=== PATIENT | female | born 1975 | race Caucasian/White ===

== ENCOUNTER → 2024-02-15 07:51 | Outpatient (REF) | payer OTHER, SELFPAY ==
[2024-02-15 08:42] LABS: % Basophils 1.2 % (0-2); % Eosinophils 2.1 % (0-6); % Immature Granulocytes 0.3 % (0-0.5); % Monocytes 5.8 % (1.7-9.3); % Neutrophils 63.6 % (42.2-75.2); Absolute Basophils 0.1 10^3/uL (0-0.2); Absolute Eosinophils 0.1 10^3/uL (0-0.7); Absolute Lymphocytes 1.8 10^3/uL (1.2-3.4); Absolute Monocytes 0.4 10^3/uL (0.1-0.6); Absolute Neutrophils 4.3 10^3/uL (1.4-6.5); Hematocrit 39.5 % (37.0-47.0); Hemoglobin 13.3 g/dL (12.0-16.0); Mean Corp Hgb Conc. 33.7 g/dL (33.0-37.0); Mean Corpuscular Hgb 28.2 pg (27.0-31.0); Mean Corpuscular Volume 83.9 fL (81.0-99.0); Mean Platelet Volume 10.8 fL (7.4-10.4); Nucleated Red Blood Cells % 0 %; Platelet Count 242 10^3/uL (130-400); Red Blood Cell Count 4.71 10^6/uL (4.20-5.40); Red Cell Dist. Width 12.1 % (11.5-14.5); White Blood Cell Count 6.8 10^3/uL (4.8-10.8)
[2024-02-15 08:56] LABS: Erythrocyte Sed Rate 15 mm/hour (0-20)
[2024-02-15 09:14] LABS: ALT (SGPT) 43 U/L (0-35); AST (SGOT) 35 U/L (14-36); Albumin 4.4 g/dl (3.5-5.0); Alkaline Phosphatase 109 U/L (38-126); Blood Urea Nitrogen 20 mg/dl (7-17); Calcium 10.3 mg/dl (8.4-10.2); Carbon Dioxide 31 mmol/L (22-30); Chloride 99 mmol/L (98-107); Glucose 103 mg/dl (70-99); HDL Cholesterol 51 mg/dl; LDL Cholesterol, Calculated 88 mg/dl; Potassium 3.8 mmol/L (3.5-5.1); Sodium 138 mmol/L (135-145); Total Bilirubin 0.5 mg/dl (0.2-1.3); Total Cholesterol 179 mg/dl (50-199); Triglyceride 202 mg/dl (10-149); Very Low Density Lipoprotein 40 mg/dl (0-30); eGFR > 60.00
[2024-02-15 09:32] LABS: Vitamin D, 25-OH*** 20.3 ng/mL (30-80)
[2024-02-16 22:29] LABS: CCP Antibody IgG/IgA 5 Units (0-19)
== END ==
LOC: RAD 07:51
PROVIDERS: ATTENDING PHYSICIAN Specialist; FAMILY PHYSICIAN Family Medicine; REFERRING PHYSICIAN Internal Medicine Rheumatology
DX: R78.89 Finding of other specified substances, not normally found in blood (principal); M13.0 Polyarthritis, unspecified; M17.0 Bilateral primary osteoarthritis of knee; E78.2 Mixed hyperlipidemia; K75.81 Nonalcoholic steatohepatitis (NASH); E55.9 Vitamin D deficiency, unspecified
CPT/HCPCS: 36415; 76700; 80053; 80061; 82306; 85025; 85652; 86140; 86200; 86430

== ENCOUNTER → 2024-07-14 19:25 | Outpatient (REF) | payer OTHER, SELFPAY | LOC: MRI 19:25 | PROVIDERS: ATTENDING PHYSICIAN Specialist; FAMILY PHYSICIAN Family Medicine | DX: M17.0 Bilateral primary osteoarthritis of knee (principal) | CPT/HCPCS: 72148; 73721 ==

== ENCOUNTER 2024-07-29 13:25 | Emergency (ER) | payer OTHER, SELFPAY ==
--- NOTE | 2024-07-29 13:44 | ED.GENMED ---
ED Provider Triage
<Maile Matthews PA-C - Last Filed: 07/29/24 13:50>
-
Patient seen by provider in Triage?: Seen in Triage
Attestation: A medical screening examination has been initiated by a qualified medical provider. Based on the assessment performed at this time, it has been determined that an emergent medical condition may exist and the patient has been informed
that further medical evaluation and possible additional diagnostic testing may be needed.
HPI: 49yoF here with trouble swallowing. Started around 7:30am this morning. [place] like something was crushing her trachea. No associated tongue swelling. Hx of seasonal allergies.
GENERAL: Alert , in no apparent distress
EYE: No visual abnormalities.
NECK: Trachea midline
ENT: No visible abnormalities.
LUNGS: No acute respiratory distress
NEUROLOGICAL: Alert and oriented
SKIN: Skin intact. No visible changes.
MUSCULOSKELETAL: Moving extremities normally
PSYCH: Normal and appropriate interaction.
This is a medical evaluation conducted in person to initiate diagnostic evaluation and provide initial therapeutics. Please see further documentation by the treating clinician.
No oropharyngeal swelling and airway is patent. Phonation is normal. No stridor.
History of Present Illness
<Maile Matthews PA-C - Last Filed: 07/29/24 13:50>
General
Chief Complaint: Throat Problem
Time Seen by Provider: 07/29/24 14:24
<Tabitha Hernández OFFICE BOOKKEEPER - Last Filed: 07/29/24 22:07>
General
Source: patient
Exam Limitations: none
Nursing documentation reviewed up to this point in time: agreed with
History of Present Illness
History of Present Illness:
49-year-old female with history of HLD, GERD, anxiety/depression/panic disorder presents stating since 730 this a.m. she has had difficulty swallowing. States 'it doesn't feel like there's anything in my throat, it's just that the whole throat
(placing hands over front of throat and lower jaw) feels tight.' She states 'it may be my anxiety.' She took 0.5 mg of Ativan at 8:15 with no relief. She denies any undue stress but at bedside states 'she is a stress monster.' Has history
of chronic stress. She denies pain in the throat or pain with swallowing, denies fever/chills. She has had an increase in her seasonal allergies in the past couple of days and is taking Flonase, Xyzal and in the past 2 days has been taking
Sudafed. She states she went to work and took her Protonix pill, drank some water to get the pill down and she had to spit it out into the sink due to difficulty swallowing.
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
Past History
<Maile Matthews PA-C - Last Filed: 07/29/24 13:50>
Past History
ED Past Medical History: Hypercholesterolemia, Psychiatric (Depression, anxiety, suicidal ideation) and Other (Endometriosis in the past, ovarian cysts, osteoarthritis, pericarditis)
ED Past Surgical History: Gynecological and Orthopedic
Social History
Tobacco: Non-smoker
Alcohol: Occasional
Drug: None
Personal:
Living: with family
Employment: Employed
Family History
Family History: Other
Review of Systems
<Tabitha Hernández NP - Last Filed: 07/29/24 22:07>
Review of Systems
Allergies reviewed?: Yes
All Other Systems: ROS reviewed and negative except as documented in HPI and ROS
Constitutional: Denies fever or fatigue
EENT: Denies sore throat (difficulty swallowing, throat feels 'tight')
Respiratory: Reports no symptoms
Cardiac: Reports no symptoms
ABD/GI: Reports no symptoms
Musculoskeletal: Reports no symptoms
Skin: Reports no symptoms
Neurological: Reports no symptoms
Phy Exam
<Tabitha Hernández OFFICE BOOKKEEPER - Last Filed: 07/29/24 22:07>
Physical Exam
Physical Exam:
GENERAL: No acute distress. A&Ox3.
CONSTITUTIONAL: Afebrile.
EYES: clear, conjunctivae normal
Neck: Supple
ENMT: moist mucus membranes, Pharynx nl,TMs normal. Speaking and swallowing saliva well.
RESPIRATORY: Regular respirations, nonlabored, lungs clear.
CARDIOVASCULAR: Regular rate and rhythm, no murmurs, no rubs.
GI: Soft, nontender
MUSCULOSKELETAL: Moves with ease. Well perfused.
SKIN: Warm, dry, pink
PSYCH: Normal mood and affect. Well kept, interactive and appropriate
NEUROLOGIC: Awake, alert and oriented. No focal neurological deficits
Course
<Maile Matthews PA-C - Last Filed: 07/29/24 13:50>
Orders/Labs/Results
Orders:
Orders
07/29/24 14:34
CR Soft Tissue Neck Urgent
Comment:
Reason For Exam: feeling like throat is swollen, diff swallowing
07/29/24 16:09
Mag Hydrox/Al Hydrox/Simeth [Maalox] 30 ml Phenobarb/Hyoscy/Atropine/Scop [] 10 ml Viscous Lidocaine 2% [Xylocaine Viscous Cup] 10 ml PO NOW
07/29/24 16:21
Mag Hydrox/Al Hydrox/Simeth [Maalox] 30 ml .ROUTE .STK-MED ONE
Phenobarb/Hyoscy/Atropine/Scop [] 10 ml .ROUTE .STK-MED ONE
Viscous Lidocaine 2% [Xylocaine Viscous Cup] 15 ml .ROUTE .STK-MED ONE
Vital Signs
Initial and Last Documented VS:
Initial Vital Signs
Temp Pulse Resp BP Pulse Ox
98.7 F 84 16 121/89 99
07/29/24 13:49 07/29/24 13:49 07/29/24 13:49 07/29/24 13:49 07/29/24 13:49
Last Documented Vital Signs
Temp Pulse Resp BP Pulse Ox
98.7 F 84 16 121/89 99
07/29/24 13:49 07/29/24 13:49 07/29/24 13:49 07/29/24 13:49 07/29/24 14:44
<Tabitha Hernández OFFICE BOOKKEEPER - Last Filed: 07/29/24 22:07>
Orders/Labs/Results
Orders:
Orders
07/29/24 14:34
CR Soft Tissue Neck Urgent
Comment:
Reason For Exam: feeling like throat is swollen, diff swallowing
07/29/24 16:09
Mag Hydrox/Al Hydrox/Simeth [Maalox] 30 ml Phenobarb/Hyoscy/Atropine/Scop [] 10 ml Viscous Lidocaine 2% [Xylocaine Viscous Cup] 10 ml PO NOW
07/29/24 16:21
Mag Hydrox/Al Hydrox/Simeth [Maalox] 30 ml .ROUTE .STK-MED ONE
Phenobarb/Hyoscy/Atropine/Scop [] 10 ml .ROUTE .STK-MED ONE
Viscous Lidocaine 2% [Xylocaine Viscous Cup] 15 ml .ROUTE .STK-MED ONE
Vital Signs
Initial and Last Documented VS:
Initial Vital Signs
Temp Pulse Resp BP Pulse Ox
98.7 F 84 16 121/89 99
07/29/24 13:49 07/29/24 13:49 07/29/24 13:49 07/29/24 13:49 07/29/24 13:49
Last Documented Vital Signs
Temp Pulse Resp BP Pulse Ox
98.7 F 84 16 121/89 99
07/29/24 13:49 07/29/24 13:49 07/29/24 13:49 07/29/24 13:49 07/29/24 14:44
<Tabitha Hernández OFFICE BOOKKEEPER - Last Filed: 07/29/24 22:07>
MDM/Problems Addressed
Differential Diagnosis Includes:
Seasonal allergies, throat irritation from farm dust, neck mass/swelling, anxiety
MDM/Problems Addressed:
49-year-old female with history of HLD, GERD, anxiety/depression/panic disorder presents stating since 730 this a.m. she has had difficulty swallowing. States 'it doesn't feel like there's anything in my throat, it's just that the whole throat
(placing hands over front of throat and lower jaw) feels tight. She states 'it may be my anxiety.' She took 0.5 mg of Ativan at 8:15 with no relief. She denies any undue stress but at bedside states 'she is a stress monster.' Has history
of chronic stress. She denies pain in the throat or pain with swallowing, denies fever/chills. She has had an increase in her seasonal allergies in the past couple of days and is taking Flonase, Xyzal and in the past 2 days has been taking
Sudafed. She states she went to work and took her Protonix pill, drank some water to get the pill down and she had to spit it out into the sink due to difficulty swallowing.
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
Patient is in absolutely no distress, she is conversing with no notable difficulty speaking or swallowing.
She states she can take tiny sips and it goes down but if she takes a regular drink it 'just comes right back up.'
4:10 p.m.
ST neck xray normal
Pt asking if there's anything to help the feeling in her throat
GI cocktail given, pt has appt with GI Dr. Logan and is in discussion about Upper endoscopy
Referred to ENT for swallowing difficulty
Pt has appt with her psychiatrist tomorrow
She is comfortable going home.
<Tabitha V. Day, OFFICE BOOKKEEPER - Last Filed: 07/29/24 22:07>
*Critical Care Note
Total Time (30-74mins, 75-104mins- exclusive of procedures): Not Applicable
ED Attending Note
<Maile Matthews PA-C - Last Filed: 07/29/24 13:50>
-
Portions of this chart may have been created with voice recognition software.� Occasional wrong word or��sound alike� substitutions may have occurred due to the inherent limitations of voice recognition software.
Discharge Plan
Departure
Patient Disposition: Home (Routine Discharge)
Date of Disposition: 07/29/24
Time of Disposition: 16:25
Patient with high blood pressure during this ER visit?: No
Condition: Good
Discharge Problem:
Throat tightness
Instructions: Dysphagia (DC)
Prescriptions:
No Action
atorvastatin 10 MG tablet
10 mg PO QPM
pantoprazole 40 MG tablet,delayed release (DR/EC)
40 mg PO DAILY Qty: 0 0RF
levocetirizine [Xyzal] 5 MG tablet
5 mg PO DAILY
Dyazide:
1 tab PO DAILY
Lamictal
100 mg PO BID
Oxycodone
5 mg PO TID
Singulair
10 mg PO DAILY
Ambien:
10 mg PO PRN PRN (Reason: sleep)
Alprazolam
1 tab PO PRN PRN (Reason: anxiety)
albuterol sulfate [Proventil HFA] 90 MCG/PUFF HFA aerosol inhaler
1 puff inhalation Q4HPRN PRN (Reason: shortness of breath) Qty: 1 0RF
prednisone 50 MG tablet
50 mg PO DAILY Qty: 5 0RF
azithromycin 250 MG tablet
250 mg PO DAILY 4 Days Qty: 4 0RF
amoxicillin-pot clavulanate 875-125 mg tablet
1 tab PO BID 3 Days Qty: 6 0RF
amoxicillin-pot clavulanate 875-125 mg tablet
1 tab PO BID Qty: 14 0RF
Referrals:
Tom Bernal MD [Active] - As needed
Rafael Good MD [Family Provider] -
Activity Restrictions/Additional Instructions:
As we discussed, the x-ray of your neck shows no obstruction or mass. Follow-up with Dr. Logan as you were discussing with him the possible need for an endoscopy.
I have provided you the name of an ENT doctor you may follow-up with if your symptoms persist.
Return here immediately for inability to swallow your secretions, trouble breathing or feeling worse in any way
Interventions
Interventions:
*Risk Screen - Suicide Last Done: 07/29/24 13:49
*General Assessment Last Done: 07/29/24 13:49
*Neglect/Abuse Screening Last Done: 07/29/24 13:49
*Nursing Disposition Last Done: 07/29/24 16:41
ED-EENT Assessment Last Done: 07/29/24 14:44
ED- Pulmonary Assessment Last Done: 07/29/24 14:44
Discharge Date and Time
Discharge Date/Time: 07/29/24 16:41
Print Language: NIUEAN
[2024-07-29 13:49] VITALS: BP 121/89
[2024-07-29] MEDS: MAALOX 50 PO (16:22)
== END 2024-07-29 16:41 | disposition home or self-care (01) ==
LOC: EMR 13:25
PROVIDERS: EMERGENCY PHYSICIAN Emergency Medicine; FAMILY PHYSICIAN Family Medicine
DX: R13.10 Dysphagia, unspecified (principal); E78.00 Pure hypercholesterolemia, unspecified; K21.9 Gastro-esophageal reflux disease without esophagitis; F41.8 Other specified anxiety disorders; F41.0 Panic disorder [episodic paroxysmal anxiety]; M19.90 Unspecified osteoarthritis, unspecified site
CPT/HCPCS: 99283; 70360

== ENCOUNTER → 2024-08-07 10:08 | Outpatient (REF) | payer OTHER, SELFPAY ==
[2024-08-07 10:51] LABS: ALT (SGPT) 339 U/L (0-35); AST (SGOT) 165 U/L (14-36); Albumin 4.3 g/dl (3.5-5.0); Alkaline Phosphatase 245 U/L (38-126); Blood Urea Nitrogen 21 mg/dl (7-17); Calcium 9.8 mg/dl (8.4-10.2); Carbon Dioxide 33 mmol/L (22-30); Chloride 97 mmol/L (98-107); Glucose 109 mg/dl (70-99); HDL Cholesterol 40 mg/dl; LDL Cholesterol, Calculated 133 mg/dl; Potassium 4.4 mmol/L (3.5-5.1); Sodium 142 mmol/L (135-145); Total Bilirubin 0.6 mg/dl (0.2-1.3); Total Cholesterol 213 mg/dl (50-199); Total Protein 7.3 g/dl (6.3-8.2); Triglyceride 201 mg/dl (10-149); Very Low Density Lipoprotein 40 mg/dl (0-30); eGFR > 60.00
[2024-08-07 10:52] LABS: Glycohemoglobin (HgbA1c) 5.8 % (4.0-5.6)
[2024-08-07 11:07] LABS: Vitamin D, 25-OH*** 20.9 ng/mL (30-80)
== END ==
LOC: REG 10:08
PROVIDERS: ATTENDING PHYSICIAN Family Medicine
DX: E78.2 Mixed hyperlipidemia (principal); E66.01 Morbid (severe) obesity due to excess calories; E55.9 Vitamin D deficiency, unspecified; R73.02 Impaired glucose tolerance (oral)
CPT/HCPCS: 36415; 80053; 80061; 82306; 83036; 84443

== ENCOUNTER → 2024-08-13 11:24 | Outpatient (REF) | payer OTHER, SELFPAY ==
[2024-08-13 12:34] LABS: ALT (SGPT) 388 U/L (0-35); AST (SGOT) 237 U/L (14-36); Albumin 4.6 g/dl (3.5-5.0); Alkaline Phosphatase 331 U/L (38-126); Direct Bilirubin 0.3 mg/dl (0.0-0.4); Total Bilirubin 0.6 mg/dl (0.2-1.3); Total Protein 7.7 g/dl (6.3-8.2)
[2024-08-16 01:58] LABS: ANA, IgG Reflex to HEp-2 None Detected (None Detected)
[2024-08-16 02:10] LABS: F-Actin Antibody IgG 9 Units (0-19); Mitochondrial M2 Ab, IgG 63.7 Units (0.0-24.9)
== END ==
LOC: REG 11:24
PROVIDERS: ATTENDING PHYSICIAN Specialist; FAMILY PHYSICIAN Family Medicine
DX: K75.81 Nonalcoholic steatohepatitis (NASH) (principal); M25.50 Pain in unspecified joint
CPT/HCPCS: 36415; 80076; 86015; 86038; 86381

== ENCOUNTER 2024-08-15 11:07 | Emergency (ER) | payer OTHER, SELFPAY ==
[2024-08-15 11:08] VITALS: BP 136/81
[2024-08-15 11:41] VITALS: BMI 32.6
[2024-08-15 11:45] VITALS: BP 123/69
[2024-08-15 12:18] LABS: % Basophils 0.8 % (0-2); % Eosinophils 1.5 % (0-6); % Immature Granulocytes 0.7 % (0-0.5); % Monocytes 3.9 % (1.7-9.3); % Neutrophils 82.1 % (42.2-75.2); Absolute Basophils 0.1 10^3/uL (0-0.2); Absolute Eosinophils 0.1 10^3/uL (0-0.7); Absolute Immature Granulocytes 0.1 10^3/uL (0-0.05); Absolute Lymphocytes 0.9 10^3/uL (1.2-3.4); Absolute Monocytes 0.3 10^3/uL (0.1-0.6); Hemoglobin 13.7 g/dL (12.0-16.0); Mean Corp Hgb Conc. 34.3 g/dL (33.0-37.0); Mean Corpuscular Hgb 29.1 pg (27.0-31.0); Mean Corpuscular Volume 85.1 fL (81.0-99.0); Mean Platelet Volume 10.6 fL (7.4-10.4); Nucleated Red Blood Cells % 0 %; Platelet Count 272 10^3/uL (130-400); Red Cell Dist. Width 12.9 % (11.5-14.5); White Blood Cell Count 8.5 10^3/uL (4.8-10.8)
[2024-08-15 12:25] LABS: ALT (SGPT) 283 U/L (0-35); AST (SGOT) 111 U/L (14-36); Albumin 4.6 g/dl (3.5-5.0); Alkaline Phosphatase 307 U/L (38-126); Blood Urea Nitrogen 15 mg/dl (7-17); Calcium 10.1 mg/dl (8.4-10.2); Carbon Dioxide 32 mmol/L (22-30); Chloride 94 mmol/L (98-107); Estimated Creatinine Clearance 90 ml/min; Glucose 110 mg/dl (70-99); Lipase 81 U/L (23-300); Potassium 3.7 mmol/L (3.5-5.1); Sodium 138 mmol/L (135-145); Total Bilirubin 0.7 mg/dl (0.2-1.3); Total Protein 7.9 g/dl (6.3-8.2); eGFR > 60.00
--- NOTE | 2024-08-15 13:37 | ED.GENMED ---
History of Present Illness
General
Chief Complaint: Abdominal Pain
Source: patient and spouse
Time Seen by Provider: 08/15/24 11:27
History of Present Illness
History of Present Illness:
49-year-old female presents for evaluation after she developed pain right upper quadrant of her abdomen. Pain started last night. The patient does admit she has been following slightly abnormal LFTs and is by gastroenterology. She called her GI
doctor and advised to come to the hospital later for pain. Patient states her last labs showed LFTs in the 200-300s. No fevers. No vomiting. No nausea.
Past History
Past History
ED Past Medical History: Hypercholesterolemia, Psychiatric (Depression, anxiety, suicidal ideation) and Other (Endometriosis in the past, ovarian cysts, osteoarthritis, pericarditis)
ED Past Surgical History: Gynecological and Orthopedic
Social History
Tobacco: Non-smoker
Alcohol: Occasional
Drug: None
Personal:
Living: with family
Employment: Employed
Family History
Family History: Other
Phy Exam
Physical Exam
Physical Exam:
CONSTITUTIONAL Patient alert and oriented to person, place and time. Well-appearing. Vital signs reviewed.
HEAD atraumatic, normocephalic.
EYES eyelids normal to inspection, Extraocular muscles intact, Conjunctiva normal, Sclera normal.
NECK normal range of motion, Trachea midline, no jugular venous distention.
RESPIRATORY CHEST No respiratory distress noted, Chest expansion equal, Bilateral breath sounds clear.
CARDIOVASCULAR regular rate and rhythm, Heart sounds normal.
ABDOMEN mild right upper quadrant tenderness, Bowel sounds normal. No distention.
BACK normal inspection, no obvious deformities
UPPER EXTREMITY range of motion normal, Motor strength normal, no cyanosis, no edema.
LOWER EXTREMITY range of motion normal, Motor strength normal, no cyanosis, no edema.
NEURO Speech normal, No focal motor deficits, Uriel coma scale 15, Memory normal, Cranial Nerves intact to screening exam.
SKIN skin warm, dry, and normal in color.
Course
Orders/Labs/Results
Orders:
Orders
08/15/24 11:38
US Abdomen Complete/Upper Urgent
Comment:
Reason For Exam: RUQ pain, abn LFTs
08/15/24 11:57
Complete Blood Count/With Diff Urgent
Comprehensive Metabolic Panel Urgent
Lipase Urgent
Abnormal Lab Results
08/15/24
11:57
MPV 10.6 H fL
(7.4-10.4)
Abs Immat Gran (auto) 0.1 H 10^3/uL
(0-0.05)
Absolute Neuts (auto) 7.0 H 10^3/uL
(1.4-6.5)
Absolute Lymphs (auto) 0.9 L 10^3/uL
(1.2-3.4)
Immature Gran % 0.7 H %
(0-0.5)
Neutrophils % 82.1 H %
(42.2-75.2)
Lymphocytes % 11.0 L %
(20.5-51.1)
Chloride 94 L mmol/L
(98-107)
Carbon Dioxide 32 H mmol/L
(22-30)
Glucose 110 H mg/dl
(70-99)
AST 111 H U/L
(14-36)
ALT 283 H U/L
(0-35)
Alkaline Phosphatase 307 H U/L
(38-126)
08/15/24 11:57
08/15/24 11:57
Vital Signs
Initial and Last Documented VS:
Initial Vital Signs
Temp Pulse Resp BP Pulse Ox
98.0 F 90 16 136/81 99
08/15/24 11:08 08/15/24 11:08 08/15/24 11:08 08/15/24 11:08 08/15/24 11:08
Last Documented Vital Signs
Temp Pulse Resp BP Pulse Ox
98.0 F 90 16 123/69 96
08/15/24 11:08 08/15/24 11:08 08/15/24 11:08 08/15/24 11:45 08/15/24 11:45
MDM/Problems Addressed
MDM/Problems Addressed:
Abnormal LFTs, fatty liver, gallbladder polyp
*Radiology
Radiology exam reviewed: radiology read reviewed
*Pulse Oximetry
Patient hypoxic: no
*Critical Care Note
Total Time (30-74mins, 75-104mins- exclusive of procedures): Not Applicable
Data Reviewed
Review of Other/Old Records Reveals: Labs (Previous LFTs reviewed)
Source: patient and spouse
Further Testing Considered But Not Given:
Consider CT but ultrasound was reasonable
Patient Management
Discussion with other providers: Guest Services Agent (Gastroenterology)
Escalation/DeEscalation of care consider admission/obs:
49-year-old female presents for right upper quadrant pain. Noted to have recent elevated LFTs. Today's LFTs are improved from recent. Ultrasound noted. Ultrasound ultrasound the gastroenterology who recommends outpatient follow-up. Patient
appears well and is stable
ED Attending Note
-
Portions of this chart may have been created with voice recognition software.� Occasional wrong word or��sound alike� substitutions may have occurred due to the inherent limitations of voice recognition software.
Discharge Plan
Departure
Patient Disposition: Home (Routine Discharge)
Date of Disposition: 08/15/24
Time of Disposition: 13:42
Patient with high blood pressure during this ER visit?: No
Discharge Problem:
Abdominal pain
Instructions: Abdominal Pain
Prescriptions:
No Action
atorvastatin 10 MG tablet
10 mg PO QPM
pantoprazole 40 MG tablet,delayed release (DR/EC)
40 mg PO DAILY Qty: 0 0RF
levocetirizine [Xyzal] 5 MG tablet
5 mg PO DAILY
Dyazide:
1 tab PO DAILY
Lamictal
100 mg PO BID
Oxycodone
5 mg PO TID
Singulair
10 mg PO DAILY
Ambien:
10 mg PO PRN PRN (Reason: sleep)
Alprazolam
1 tab PO PRN PRN (Reason: anxiety)
albuterol sulfate [Proventil HFA] 90 MCG/PUFF HFA aerosol inhaler
1 puff inhalation Q4HPRN PRN (Reason: shortness of breath) Qty: 1 0RF
prednisone 50 MG tablet
50 mg PO DAILY Qty: 5 0RF
azithromycin 250 MG tablet
250 mg PO DAILY 4 Days Qty: 4 0RF
amoxicillin-pot clavulanate 875-125 mg tablet
1 tab PO BID 3 Days Qty: 6 0RF
amoxicillin-pot clavulanate 875-125 mg tablet
1 tab PO BID Qty: 14 0RF
Referrals:
Rafael Good MD [Family Provider] -
Activity Restrictions/Additional Instructions:
Please follow-up with Dr. Logan. Return immediately for worsening symptoms, tractable vomiting, shortness of breath, palpitations, weakness or any other concerns
Interventions
Interventions:
*Risk Screen - Suicide Last Done: 08/15/24 11:41
*General Assessment Last Done: 08/15/24 11:41
*Neglect/Abuse Screening Last Done: 08/15/24 11:41
ED- Fall Risk Assessment Last Done: 08/15/24 11:41
*ED COVID-19 Vaccine History Last Done: 08/15/24 11:41
TZ-[id number]-[id number] Assessment Last Done: 08/15/24 11:41
Discharge Date and Time
Print Language: MALTESE
[2024-08-15 13:58] VITALS: BP 116/48
== END 2024-08-15 14:06 | disposition home or self-care (01) ==
LOC: EMR 11:07
PROVIDERS: EMERGENCY PHYSICIAN Emergency Medicine; FAMILY PHYSICIAN Family Medicine
DX: R10.11 Right upper quadrant pain (principal)
CPT/HCPCS: 99284; 76700; 80053; 83690; 85025

== ENCOUNTER → 2024-08-18 13:11 | Outpatient (REF) | payer OTHER, SELFPAY ==
[2024-08-18 15:26] LABS: ALT (SGPT) 136 U/L (0-35); AST (SGOT) 52 U/L (14-36); Albumin 4.6 g/dl (3.5-5.0); Alkaline Phosphatase 255 U/L (38-126); Direct Bilirubin 0.2 mg/dl (0.0-0.4); Lipase 89 U/L (23-300); Total Bilirubin 0.4 mg/dl (0.2-1.3); Total Protein 7.9 g/dl (6.3-8.2)
[2024-08-20 22:53] LABS: EBV-EA (D) Ab IgG 53.3 U/mL (0.0-10.9)
[2024-08-20 22:56] LABS: CMV IgM Antibody 10.9 AU/mL (<=29.9)
[2024-08-21 01:14] LABS: LKM-1 Ab (IgG) 1.6 U (0.0-24.9)
== END ==
LOC: REG 13:11
PROVIDERS: ATTENDING PHYSICIAN Specialist; FAMILY PHYSICIAN Family Medicine
DX: R79.89 Other specified abnormal findings of blood chemistry (principal)
CPT/HCPCS: 36415; 80076; 83516; 83690; 84155; 84165; 86376; 86645; 86663; 86664; 86665

== ENCOUNTER → 2024-08-27 12:55 | Outpatient (REF) | payer OTHER, SELFPAY ==
[2024-08-27 14:03] LABS: ALT (SGPT) 75 U/L (0-35); AST (SGOT) 50 U/L (14-36); Albumin 4.5 g/dl (3.5-5.0); Alkaline Phosphatase 165 U/L (38-126); Direct Bilirubin 0.2 mg/dl (0.0-0.4); Total Bilirubin 0.3 mg/dl (0.2-1.3); Total Protein 7.6 g/dl (6.3-8.2)
== END ==
LOC: REG 12:55
PROVIDERS: ATTENDING PHYSICIAN Specialist
DX: R79.89 Other specified abnormal findings of blood chemistry (principal)
CPT/HCPCS: 36415; 80076

== ENCOUNTER → 2024-09-12 11:12 | Outpatient (REF) | payer OTHER, SELFPAY ==
[2024-09-12 20:31] LABS: ALT (SGPT) 30 U/L (0-35); AST (SGOT) 46 U/L (14-36); Albumin 4.8 g/dl (3.5-5.0); Alkaline Phosphatase 99 U/L (38-126); Direct Bilirubin 0.4 mg/dl (0.0-0.4); Total Bilirubin 0.6 mg/dl (0.2-1.3)
== END ==
LOC: REG 11:12
PROVIDERS: ATTENDING PHYSICIAN Specialist; FAMILY PHYSICIAN Family Medicine
DX: R79.89 Other specified abnormal findings of blood chemistry (principal)
CPT/HCPCS: 36415; 80076

== ENCOUNTER → 2024-11-05 12:17 | Outpatient (REF) | payer OTHER, SELFPAY ==
[2024-11-05 14:51] LABS: ALT (SGPT) 24 U/L (0-35); AST (SGOT) 28 U/L (14-36); Albumin 4.3 g/dl (3.5-5.0); Alkaline Phosphatase 102 U/L (38-126); Total Bilirubin < 0.1 mg/dl (0.2-1.3); Total Protein 6.8 g/dl (6.3-8.2)
[2024-11-05 17:35] LABS: Direct Bilirubin 0.2 mg/dl (0.0-0.4)
== END ==
LOC: REG 12:17
PROVIDERS: ATTENDING PHYSICIAN Specialist; FAMILY PHYSICIAN Family Medicine
DX: R79.89 Other specified abnormal findings of blood chemistry (principal)
CPT/HCPCS: 36415; 80076

== ENCOUNTER → 2025-05-20 07:14 | Outpatient (REF) | payer OTHER, SELFPAY ==
[2025-05-20 09:08] LABS: Hematocrit 44.6 % (37.0-47.0); Hemoglobin 14.5 g/dL (12.0-16.0); Mean Corp Hgb Conc. 32.5 g/dL (33.0-37.0); Mean Corpuscular Volume 85.4 fL (81.0-99.0); Nucleated Red Blood Cells % 0 %; Platelet Count 263 10^3/uL (130-400); Red Cell Dist. Width 13.2 % (11.5-14.5)
[2025-05-20 10:03] LABS: ALT (SGPT) 25 U/L (0-35); AST (SGOT) 21 U/L (14-36); Albumin 4.5 g/dl (3.5-5.0); Alkaline Phosphatase 77 U/L (38-126); Blood Urea Nitrogen 16 mg/dl (7-17); Calcium 10.1 mg/dl (8.4-10.2); Carbon Dioxide 35 mmol/L (22-30); Chloride 101 mmol/L (98-107); Glucose 93 mg/dl (70-99); HDL Cholesterol 62 mg/dl; LDL Cholesterol, Calculated 161 mg/dl; Potassium 4.5 mmol/L (3.5-5.1); Sodium 141 mmol/L (135-145); Total Protein 7.0 g/dl (6.3-8.2); Very Low Density Lipoprotein 39 mg/dl (0-30); eGFR > 60.00
[2025-05-20 11:06] LABS: Glycohemoglobin (HgbA1c) 5.8 % (4.0-5.6)
== END ==
LOC: RAD 07:14
PROVIDERS: ATTENDING PHYSICIAN Specialist; FAMILY PHYSICIAN Family Medicine
DX: R79.89 Other specified abnormal findings of blood chemistry (principal); E78.2 Mixed hyperlipidemia; R73.02 Impaired glucose tolerance (oral); K75.81 Nonalcoholic steatohepatitis (NASH)
CPT/HCPCS: 36415; 76700; 80053; 80061; 83036; 85025